=== PATIENT | male | born 1990 | race Caucasian/White ===

== ENCOUNTER 2023-09-01 08:59 | Inpatient (IN) | payer OTHER ==
[2023-09-01 09:44] VITALS: BMI 20.9
[2023-09-01] MEDS ORDERED: BENZONATATE 200 MG CAPSULE PO PRN (11:14)
[2023-09-01] MEDS ORDERED: BISMUTH SUBSALICYLATE 524 MG/30 ML PO PRN (11:14)
[2023-09-01] MEDS ORDERED: DICYCLOMINE HCL 10 MG CAPSULE PO PRN (11:14)
[2023-09-01] MEDS ORDERED: IBUPROFEN 400 MG TABLET (FP) PO PRN (11:14)
[2023-09-01] MEDS ORDERED: BENZOCAINE/MENTHOL (CHLORASEPTIC ) LOZENGE MM PRN (11:14)
[2023-09-01] MEDS ORDERED: POLYETHYLENE GLYCOL (HEALTHYLAX) 3350 17 GM PACKET PO PRN (11:14)
[2023-09-01] MEDS ORDERED: NALOXONE HCL 0.4 MG/ML VIAL IM PRN (11:14)
[2023-09-01] MEDS ORDERED: ACETAMINOPHEN 325 MG TABLET (FP) PO PRN (11:14)
[2023-09-01] MEDS ORDERED: MAG HYDROX/AL HYDROX/SIMETH 30 ML UNIT-DOSE CUP PO PRN (11:14)
[2023-09-01] MEDS ORDERED: guaiFENesin 600 MG TABLET.ER (FP) PO PRN (11:14)
[2023-09-01] MEDS ORDERED: LOPERAMIDE HCL 2 MG CAPSULE PO PRN (11:14)
[2023-09-01] MEDS ORDERED: NALOXONE (NARCAN) HCL 4 MG/0.1 ML SPRAY NS PRN (11:14)
[2023-09-01] MEDS ORDERED: ONDANSETRON *ODT* 4 MG TABLET ONE (11:31)
[2023-09-01] MEDS: ONDANSETRON *ODT* 4 MG TABLET SL PRN (11:33)
[2023-09-01] MEDS ORDERED: methaDONE HCL 10 MG TABLET (FOR DETOX USE ONLY) ONE (12:36)
[2023-09-01] MEDS: methaDONE HCL 10 MG TABLET PO ONE (12:44)
[2023-09-01] MEDS: PRENATAL VITAMINS W/ FOLIC ACID TABLET (FP) PO SCH (12:44)
[2023-09-01] MEDS: cloNIDine HCL 0.1 MG TABLET PO SCH (13:20)
[2023-09-01] MEDS: METHOCARBAMOL 500 MG TABLET PO PRN (17:46)
[2023-09-01] MEDS: hydrOXYzine PAMOATE 25 MG CAPSULE (FP) PO PRN (17:46)
[2023-09-01] MEDS: MELATONIN 5 MG TABLETS PO SCH (23:21)
[2023-09-01] MEDS: THIAMINE 100 MG TABLET PO SCH (23:24)
[2023-09-01] MEDS: IBUPROFEN 600 MG TABLET (FP) PO PRN (23:24)
[2023-09-01] MEDS: methaDONE HCL 10 MG TABLET PO PRN (23:27)
[2023-09-02] MEDS: methaDONE 40 MG, methaDONE 10 MG PO ONE (10:09)
[2023-09-02] MEDS: NICOTINE 14 MG/24 HOURS TOPICAL PATCH TD SCH (10:12)
[2023-09-03] MEDS ORDERED: cloNIDine HCL 0.1 MG TABLET PO PRN
[2023-09-03] MEDS: methaDONE 40 MG, methaDONE 20 MG PO ONE (10:33)
[2023-09-03] MEDS: SULFAMETHOXAZOLE/TRIMETHOPRIM 800MG/160MG D.S. TABLET PO SCH (12:38)
[2023-09-04] MEDS: methaDONE 40 MG, methaDONE 30 MG PO ONE (09:55)
[2023-09-04] MEDS: BACITRACIN 0.9 GM PACKET TP SCH (11:48)
[2023-09-05] MEDS: methaDONE HCL 40 MG DISPERSABLE TABLET PO ONE (09:37)
[2023-09-05 12:02] LABS: HEMATOCRIT 37.9 % (35.4-49); MCH 30.1 pg (25.7-33.7); MCHC 34.3 g/dl (32.0-35.9); MEAN CELL VOLUME 87.8 fl (80-96); MEAN PLT VOLUME 7.8 fl (7.5-11.1); PLATELET COUNT 394 10^3/uL (134-434); RBC 4.31 M/mm3 (4.00-5.60); RDW 14.9 % (11.9-15.9)
[2023-09-05 12:07] LABS: POTASSIUM 4.2 mmol/L (3.5-5.1)
[2023-09-05 12:09] LABS: BLOOD UREA NITROGEN 15.7 mg/dL (7-18); CALCIUM 8.7 mg/dL (8.5-10.1)
[2023-09-05 12:10] LABS: ALBUMIN 3.2 g/dl (3.4-5.0)
[2023-09-05 12:13] LABS: CREATININE 0.8 mg/dL (0.55-1.3)
[2023-09-05 12:14] LABS: BILIRUBIN,TOTAL 0.2 mg/dL (0.2-1); TOT PROT 6.3 g/dl (6.4-8.2)
[2023-09-05] MEDS: MAGNESIUM HYDROX 2400MG/30ML ORAL SUSPENSION 30 ML CUP PO PRN (18:16)
[2023-09-06] MEDS ORDERED: methaDONE HCL 10 MG TABLET PO ONE (06:00)
[2023-09-06 08:44] VITALS: BP 123/79; PULSE 89; RESP 18; TEMP 98.9
[2023-09-06] MEDS ORDERED: methaDONE 80 MG, methaDONE 10 MG PO ONE (10:00)
[2023-09-06] MEDS: methaDONE 40 MG, methaDONE 20 MG PO ONE ×2 (10:13→10:51)
== END 2023-09-06 10:50 | disposition other institution (70) | DRG 773 ==
LOC: YASAS 08:59 → Y6N 11:54
PROVIDERS: ADMIT Allergy & Immunology; ATTEND Surgery
PROC: HZ2ZZZZ Detoxification Services for Substance Abuse Treatment (ICD-10-PCS; principal; 2023-09-01)
DX: F11.23 Opioid dependence with withdrawal (principal); F14.20 Cocaine dependence, uncomplicated; F17.210 Nicotine dependence, cigarettes, uncomplicated; J34.0 Abscess, furuncle and carbuncle of nose; Z86.59 Personal history of other mental and behavioral disorders; Z59.02 Unsheltered homelessness
CPT/HCPCS: 36415; 80053; 80305; 80307; 85027; 86780; 93005; 93010; Q0162

== ENCOUNTER 2023-11-01 13:00 | Inpatient (IN) | payer OTHER ==
[2023-11-01 15:45] VITALS: BMI 21.3
[2023-11-01] MEDS ORDERED: BENZOCAINE/MENTHOL (CHLORASEPTIC ) LOZENGE MM PRN (16:16)
[2023-11-01] MEDS ORDERED: LOPERAMIDE HCL 2 MG CAPSULE PO PRN (16:16)
[2023-11-01] MEDS ORDERED: BENZONATATE 200 MG CAPSULE PO PRN (16:16)
[2023-11-01] MEDS ORDERED: DICYCLOMINE HCL 10 MG CAPSULE PO PRN (16:16)
[2023-11-01] MEDS ORDERED: BISMUTH SUBSALICYLATE 524 MG/30 ML PO PRN (16:16)
[2023-11-01] MEDS ORDERED: guaiFENesin 600 MG TABLET.ER (FP) PO PRN (16:16)
[2023-11-01] MEDS ORDERED: POLYETHYLENE GLYCOL (HEALTHYLAX) 3350 17 GM PACKET PO PRN (16:16)
[2023-11-01] MEDS ORDERED: IBUPROFEN 600 MG TABLET (FP) PO PRN (16:16)
[2023-11-01] MEDS ORDERED: IBUPROFEN 400 MG TABLET (FP) PO PRN (16:16)
[2023-11-01] MEDS ORDERED: MAG HYDROX/AL HYDROX/SIMETH 30 ML UNIT-DOSE CUP PO PRN (16:16)
[2023-11-01] MEDS ORDERED: ACETAMINOPHEN 325 MG TABLET (FP) PO PRN (16:16)
[2023-11-01] MEDS ORDERED: NALOXONE (NARCAN) HCL 4 MG/0.1 ML SPRAY NS PRN (16:16)
[2023-11-01] MEDS ORDERED: ONDANSETRON *ODT* 4 MG TABLET SL PRN (16:16)
[2023-11-01] MEDS ORDERED: NALOXONE HCL 0.4 MG/ML VIAL IM PRN (16:16)
[2023-11-01] MEDS ORDERED: hydrOXYzine PAMOATE 25 MG CAPSULE (FP) PO PRN (16:16)
[2023-11-01] MEDS ORDERED: MAGNESIUM HYDROX 2400MG/30ML ORAL SUSPENSION 30 ML CUP PO PRN (16:16)
[2023-11-01] MEDS: NALOXONE (NARCAN) HCL 4 MG/0.1 ML SPRAY NS SCH (18:01)
[2023-11-01] MEDS: methaDONE HCL 10 MG TABLET PO ONE ×2 (18:04→18:05)
[2023-11-01] MEDS: PRENATAL VITAMINS W/ FOLIC ACID TABLET (FP) PO SCH (18:04)
[2023-11-01] MEDS: cloNIDine HCL 0.1 MG TABLET PO SCH (18:09)
[2023-11-01] MEDS ORDERED: methaDONE HCL 10 MG TABLET PO PRN (18:16)
[2023-11-01] MEDS: SULFAMETHOXAZOLE/TRIMETHOPRIM 800MG/160MG D.S. TABLET PO SCH (22:47)
[2023-11-01] MEDS: THIAMINE 100 MG TABLET PO SCH (22:50)
[2023-11-01] MEDS: MELATONIN 5 MG TABLETS PO SCH (22:50)
[2023-11-02] MEDS: PANTOPRAZOLE 40 MG TABLET PO SCH (10:01)
[2023-11-02] MEDS: methaDONE 40 MG, methaDONE 10 MG PO ONE (10:01)
[2023-11-02] MEDS: NICOTINE 14 MG/24 HOURS TOPICAL PATCH TD SCH (10:01)
[2023-11-03] MEDS: methaDONE 40 MG, methaDONE 20 MG PO ONE (09:41)
[2023-11-03] MEDS: BACITRACIN 0.9 GM PACKET TP SCH (09:43)
[2023-11-03] MEDS: METHOCARBAMOL 500 MG TABLET PO PRN (17:40)
[2023-11-03] MEDS: cloNIDine HCL 0.1 MG TABLET PO PRN (17:40)
[2023-11-03] MEDS: SUVOREXANT 10 MG TABLET PO PRN (22:42)
[2023-11-04] MEDS: methaDONE 40 MG, methaDONE 30 MG PO ONE (10:40)
[2023-11-05] MEDS: methaDONE HCL 40 MG DISPERSABLE TABLET PO ONE (10:01)
[2023-11-05 10:22] LABS: BASO % 0.7 % (0-2.0); EOS % 3.9 % (0-4.5); HEMATOCRIT 38.7 % (35.4-49); HEMOGLOBIN 13.2 GM/dL (11.7-16.9); LYMPH % 26.3 % (8-40); MCH 30.1 pg (25.7-33.7); MCHC 34.2 g/dl (32.0-35.9); MEAN CELL VOLUME 88.1 fl (80-96); NEUT % 63.1 % (42.8-82.8); PLATELET COUNT 372 10^3/uL (134-434); RBC 4.39 M/mm3 (4.00-5.60); RDW 14.8 % (11.9-15.9); WHITE BLOOD COUNT 12.8 K/mm3 (4.0-10.0)
[2023-11-05 10:23] LABS: POTASSIUM 3.7 mmol/L (3.5-5.1)
[2023-11-05 10:29] LABS: CALCIUM 8.9 mg/dL (8.5-10.1)
[2023-11-05 10:33] LABS: CREATININE 0.8 mg/dL (0.55-1.3)
[2023-11-06] MEDS: methaDONE HCL 40 MG DISPERSABLE TABLET PO ONE (05:45)
[2023-11-06 06:03] VITALS: TEMP 98.7
[2023-11-06] MEDS ORDERED: MUPIROCIN 2% TOPICAL OINTMENT 22 GM TUBE TP SCH ×2 (09:29→14:00)
[2023-11-06 09:59] VITALS: BP 110/61; PULSE 79; RESP 18
[2023-11-06] MEDS ORDERED: methaDONE 80 MG, methaDONE 10 MG PO ONE (10:00)
== END 2023-11-06 10:32 | disposition home or self-care (01) | DRG 773 ==
LOC: YASAS 13:00 → Y6N 16:48 → Y3N 11-03 13:30
PROVIDERS: ADMIT Allergy & Immunology; ATTEND Surgery
PROC: HZ2ZZZZ Detoxification Services for Substance Abuse Treatment (ICD-10-PCS; principal; 2023-11-01)
DX: F11.23 Opioid dependence with withdrawal (principal); F14.20 Cocaine dependence, uncomplicated; F12.20 Cannabis dependence, uncomplicated; F17.210 Nicotine dependence, cigarettes, uncomplicated; F19.982 Other psychoactive substance use, unspecified with psychoactive substance-induced sleep disorder; K21.9 Gastro-esophageal reflux disease without esophagitis; K51.90 Ulcerative colitis, unspecified, without complications; J31.0 Chronic rhinitis; E86.0 Dehydration; L03.211 Cellulitis of face; Z56.0 Unemployment, unspecified; Z59.00 Homelessness unspecified
CPT/HCPCS: 36415; 80048; 80305; 85025; 86780; 93005; 93010